=== PATIENT | female | born 1985 | race Caucasian/White ===

== ENCOUNTER 2024-07-14 07:39 | Outpatient (REF) | payer MEDICAID, SELFPAY ==
--- NOTE | ~2024-07-14 | XR_ITS ---
EXAMINATION: XR KNEE, RIGHT CLINICAL INFORMATION: M25.561 - Pain in right knee COMPARISON: None available. TECHNIQUE: AP view right knee FINDINGS: No fracture, dislocation, or suspicious bone lesion. Normal bony mineralization. There is normal alignment. Minimal medial and lateral compartment joint space narrowing , with mild marginal osteophytes present. No soft tissue abnormality. XR/XR knee RT 1V IMPRESSION: 1. No acute bony abnormalities. 2. Mild medial and lateral compartment osteoarthritis. Electronically signed by: Srinivasan Alvarez MD 09/23/2024 09:11 PM [facility]
--- NOTE | ~2024-07-14 | XR_ITS ---
EXAMINATION: XR KNEE, LEFT CLINICAL INFORMATION: M25.562 - Pain in left knee COMPARISON: None available. TECHNIQUE: Four views of the left knee. FINDINGS: No fracture, dislocation, or suspicious bone lesion. Normal bony mineralization. There is normal alignment. Minimal medial and lateral compartment joint space narrowing , with mild marginal osteophytes present. Mild patellofemoral joint space narrowing involving the lateral facet, with minimal marginal osteophytes present. Lateral demonstrates no evidence of joint effusion. No soft tissue abnormality. XR/XR knee LT 3V IMPRESSION: Mild tricompartmental osteoarthrosis. No acute bony abnormalities. Electronically signed by: Srinivasan Alvarez MD 09/23/2024 09:12 PM [facility] [place]
== END 2024-07-14 07:40 | disposition home or self-care (01) ==
LOC: HO.XRAY 07:39
PROVIDERS: Visit Provider Physician Assistant
DX: M70.52 Other bursitis of knee, left knee (principal); M25.561 Pain in right knee
CPT/HCPCS: 73560; 73562; 99212

== ENCOUNTER → 2024-07-14 07:47 | Outpatient (BNV) | payer MEDICAID, SELFPAY | PROVIDERS: Visit Provider Radiology Diagnostic Radiology | DX: M17.0 Bilateral primary osteoarthritis of knee (principal) | CPT/HCPCS: 73560; 73564 ==

== ENCOUNTER 2024-07-14 08:11 | Outpatient (AMB) | payer MEDICAID, SELFPAY ==
--- NOTE | 2024-07-14 08:23 | MHC.OFFVIS ---
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 Patient reports her pain has been present for about a month and a half, state she woke up with pain. She had recently purchased a new bed topper, she removed topper and felt some improvement in her de anda. Her pain is located at the medial aspect of knee. Her pain increases with flexion of knee and walking. Denies injury. She was seen by her PCP who referred patient to orthopedics. Finds little relief with ibuprofen, she has better relief with aleve. 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 She reports she recently purchased a new bed topper and woke up with pain one morning. She has not had any pain before purchasing the topper and denies any injury. She states she removed the topper and felt improvement in her pain however she continues to have pain at the medial aspect of her knee. Her pain is aggravated with flexion of knee, ambulation, sitting, and getting up from sitting position. She was seen by her PCP who referred her to our office. She finds mild relief with ibuprofen and she has better relief with Aleve. 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 Review of Systems Const All systems reviewed & are unremarkable except as noted in HPI and below Physical Exam Const General: cooperative, healthy appearing, comfortable, no acute distress, well developed and alert Orientation/consciousness: patient oriented x3 HEENT Head: Yes normal to inspection, Yes normocephalic and Yes atraumatic Eyes General: appearance normal, both eyes and all related structures Resp Effort & Inspection: normal respiratory effort and able to speak in complete sentences Cardio Rate: regular rate Peripheral pulses: Peripheral pulses 2+ throughout GI Palpation (GI): Soft to palpation Skin Lesions: no lesions Rashes: no rashes Neuro General: patient oriented x3 Extrem Other: Left knee: Skin intact, no erythema or joint effusion. Tenderness along the pes bursa. Full ROM with crepitus. Negative Dimitris?s. No ligamentous laxity. NVI. Results Reviewed Results Reviewed: xray of the left knee obtained today show milf pf oa Assessment & Plan Assessment & Plan (1) Pes anserinus bursitis of left knee: Code(s): M70.52 - Other bursitis of knee, left knee Category: Medical Plan We discussed options which include PT, NSAIDs and injections. The patient will defer on the injection today and proceed with PT and NSAIDs. A prescription for Aleve was given to take twice a day for 2 weeks. If symptoms persist, she will contact me for an injection, otherwise, PRN. Orders: Orders XR knee RT 1V Today M25.561 - Pain in right knee PT Evaluation and Treatment Today M70.51 - Other bursitis of knee, right knee XR knee LT 3V Today M25.562 - Pain in left knee Medications: New naproxen 500 mg PO BID 60 tabs 3RF 30 days Patient Instructions: Scribed for Jennie Ambrocio PA-C, by Abe Castelan medical insurance collector, on 07/14/2024 at 8:00 AM EST.? I, Jennie Ambrocio PA-C, have personally reviewed and agree with the information entered by the scribe. Coding Level of Care Code New Pt Level 3 (42325) Complex EM visit Add On G2211 Diagnoses Pes anserinus bursitis of left knee M70.52
== END 2024-07-14 09:01 | disposition home or self-care (01) ==
PROVIDERS: PCP Nurse Practitioner Family; Visit Provider Physician Assistant
DX: M70.52 Other bursitis of knee, left knee (principal)
CPT/HCPCS: 99204

== ENCOUNTER 2024-08-24 12:00 | Outpatient (RCR) | payer MEDICAID, SELFPAY ==
--- NOTE | 2024-07-28 13:30 | MHC.PT.EP ---
[facility] [place] Office [place] Office [place] Office [address] Yuan [place] [address] [phone] F: [phone] F: [phone] F: [phone] F: [phone] Physical Therapy Plan of Care Date of Evaluation: 07/28/24 Date of Surgery: N/A Diagnosis: Bursitis of knee, right knee Assessment: Pt is a 39yo female referred to PT for bursitis of right knee. Signs and symptoms indicate irritation of pes anserine origin due to location of pain and onset of injury. Impairments include pain, reduced range of motion, gross lower extremity strength deficits, postural/gait impairments, limitations in tissue extensibility, and difficulty with functional and occupational tasks such as standing up from a chair, getting into the bathtub, and walking. Pt is a good candidate for PT due to prior level of function, age, comorbidities, motivation to improve, modifiable nature of her impairments, and typical prognosis of her condition. Pt would benefit from a progressive strengthening/stretching program, postural re-education, gait training, manual therapy for tissue extensibilities, and modalities for pain management. 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 Manual therapy to restore motion and function. Therapeutic exercise to improve strength and flexibility. Neuromuscular re-education for posture and balance. Therapeutic activities to return to functional activities of daily living. Electronically signed by: Jana Bland PT, DPT Please sign and return to therapist. Thank you for your referral.
--- NOTE | 2024-09-25 12:20 | MHC.PT.DC ---
[facility] [place] Office [place] Office [place] Office [address] Yuan [place] [address] [facility] [phone] F: [phone] F: [phone] F: [phone] F: [phone] Physical Therapy Discharge Report Diagnosis: Bursitis of knee, right knee Date of Surgery: N/A Date of Evaluation: 07/28/24 Date of Discharge: 09/25/24 Treatments to Date: 7 Cancellations to Date: 0 No Shows to Date: 0 Discharge Status: Improved Function Independent with HEP Discharge Summary: Per last treatment note on 08/24/24: pt overall has been feeling much better over the past week. She has switched to sneakers that are much more supportive and has been compliant w/ her HEP and cryotherapy. She feels she is I w/ her routine. I will keep her chart open for 3 weeks. If I do not hear from her by then I will D/C the chart at that time. Electronically signed by: Jana Bland PT, DPT Please sign and return to therapist. Thank you for your referral.
== END 2024-09-25 12:21 | disposition home or self-care (01) ==
LOC: HO.PT 12:00
PROVIDERS: PCP Nurse Practitioner Family; Visit Provider Physician Assistant
DX: M70.51 Other bursitis of knee, right knee (principal)
CPT/HCPCS: 97014; 97110; 97140; 97161